=== PATIENT | female | born 1965 | race Caucasian/White ===

== ENCOUNTER 2022-06-23 08:02 | Outpatient (CLI) | payer BC, SELFPAY ==
[2022-06-23 16:53] LABS: Vitamin D 25 Hydroxy* 38 ng/mL (30-80)
[2022-06-23 16:59] LABS: Uric Acid* 4.1 mg/dL (2.2-8.4)
[2022-06-24 16:39] LABS: Rheumatoid Factor <10 IU/mL (0-14)
== END 2022-06-23 08:03 | disposition home or self-care (01) ==
PROVIDERS: Visit Provider Physician Assistant Medical
DX: M25.50 Pain in unspecified joint (principal); E11.9 Type 2 diabetes mellitus without complications; I10 Essential (primary) hypertension
CPT/HCPCS: 82306; 84443; 84550; 86200; 86431; 86618

== ENCOUNTER 2023-02-24 09:14 | Outpatient (CLI) | payer BC, SELFPAY | END 2023-02-24 09:15 | disposition home or self-care (01) | LOC: NFLDREF 02-25 07:22 | PROVIDERS: PCP Physician Assistant Medical; Referring Provider Physician Assistant Medical; Visit Provider Physician Assistant Medical | DX: Z00.00 Encounter for general adult medical examination without abnormal findings (principal); E03.8 Other specified hypothyroidism; E11.9 Type 2 diabetes mellitus without complications; I10 Essential (primary) hypertension; M25.50 Pain in unspecified joint | CPT/HCPCS: 80053; 80061; 84439; 84443 ==

== ENCOUNTER 2023-06-23 15:07 | Outpatient (CLI) | payer BC, SELFPAY ==
--- NOTE | 2023-06-23 15:20 | CRLHL7_ITS ---
For Patients: As a result of the Century Cures Act, medical imaging exams and procedure reports are released immediately into your electronic medical record. You may view this report before your referring provider. If you have questions, please contact your health care provider. BILATERAL SCREENING MAMMOGRAM WITH COMPUTER-AIDED DETECTION AND TOMOSYNTHESIS TECHNIQUE: CC and MLO views were obtained. These mammographic images have been obtained using full-field digital technique. These mammographic images were interpreted with the benefit of computer-aided detection. Breast Tomosynthesis was used in this interpretation. COMPARISON FILM: 12/11/21, 06/17/18, 06/10/17. FINDINGS: The breasts are heterogeneously dense, which may obscure small masses IMPRESSION: There is no radiographic evidence for malignancy. ASSESSMENT: BI-RADS Category 2: Benign RECOMMENDATION: Routine screening mammogram in 1 year. A lay language report of this examination will be provided to the patient. Jj Garcia M.D. Diagnostic Radiologist [email or web address] Transcribed: 1:13 p.[email or web address] lazo/Dictated by: Jj Garcia MD @ 06/24/2023 12:09:00 PM (Electronically Signed)
== END 2023-06-23 15:08 | disposition home or self-care (01) ==
PROVIDERS: Visit Provider Physician Assistant Medical
DX: Z12.31 Encounter for screening mammogram for malignant neoplasm of breast (principal); R92.2 Inconclusive mammogram
CPT/HCPCS: 77063; 77067

== ENCOUNTER 2024-04-04 08:10 | Outpatient (CLI) | payer BC, SELFPAY | END 2024-04-04 08:11 | disposition home or self-care (01) | LOC: NFLDREF 04-05 10:48 | PROVIDERS: PCP Physician Assistant Medical; Referring Provider Physician Assistant Medical; Visit Provider Physician Assistant Medical | DX: Z00.00 Encounter for general adult medical examination without abnormal findings (principal); E03.8 Other specified hypothyroidism; E11.9 Type 2 diabetes mellitus without complications; I10 Essential (primary) hypertension; R05.9 Cough, unspecified; R05.2 Subacute cough | CPT/HCPCS: 80053; 80061; 82043; 82570; 84443 ==

== ENCOUNTER 2024-06-26 08:08 | Outpatient (CLI) | payer BC, SELFPAY ==
--- NOTE | 2024-06-26 08:15 | CRLHL7_ITS ---
For Patients: As a result of the Century Cures Act, medical imaging exams and procedure reports are released immediately into your electronic medical record. You may view this report before your referring provider. If you have questions, please contact your health care provider. BILATERAL SCREENING MAMMOGRAM WITH COMPUTER-AIDED DETECTION AND TOMOSYNTHESIS TECHNIQUE: CC and MLO views were obtained. These mammographic images have been obtained using full-field digital technique. These mammographic images were interpreted with the benefit of computer-aided detection. Breast Tomosynthesis was used in this interpretation. COMPARISON FILM: 06/23/23, 12/11/21, 06/17/18. FINDINGS: The breasts are extremely dense, which lowers the sensitivity of mammography. IMPRESSION: There is no radiographic evidence for malignancy. ASSESSMENT: BI-RADS Category 2: Benign RECOMMENDATION: Routine screening mammogram in 1 year. A lay language report of this examination will be provided to the patient. Jj Garcia M.D. Diagnostic Radiologist [email or web address] SP/Dictated by: Jj Garcia MD @ 06/26/2024 9:45:00 AM (Electronically Signed)
== END 2024-06-26 08:09 | disposition home or self-care (01) ==
LOC: MAMMO 08:09
PROVIDERS: PCP Physician Assistant Medical; Visit Provider Physician Assistant Medical
DX: Z12.31 Encounter for screening mammogram for malignant neoplasm of breast (principal); R92.343 Mammographic extreme density, bilateral breasts
CPT/HCPCS: 77063; 77067

== ENCOUNTER 2025-03-28 07:11 | Day surgery (SDC) | payer BC, SELFPAY ==
[2025-03-28] VITALS (13 sets, daily range): BP systolic 100–133; BP diastolic 65–88; PULSE 57–76; RESP 12–16; TEMP 36.1–36.6; O2SAT 93–97; BMI 29.3
--- NOTE | 2025-03-28 07:38 | W.PM.H&PU ---
History & Physical Update History & Physical Update H&P Reviewed and patient assessed: No changes noted
[2025-03-28] MEDS: LACTATED RINGERS 1000 ML 1,000 ML 100 ML IV (07:50)
[2025-03-28] MEDS: SODIUM CHLORIDE 0.9 % (FLUSH) 10 ML SYRINGE IVF (07:50)
[2025-03-28] MEDS: ROPIVACAINE 0.5% 30 ML 150 MG INJECTION (09:25)
--- NOTE | 2025-03-28 09:32 | P.ORPRC_ITS ---
Procedure Note Date of procedure: 03/28/25 Procedure: PREOPERATIVE DIAGNOSIS: 1. Left knee medial meniscus tear POSTOPERATIVE DIAGNOSIS: 1. Left knee medial meniscus tear PROCEDURE: 1. Left knee arthroscopic partial medial meniscectomy SURGEON: Liang Trinidad M.D. ENVIRONMENTAL PLANNING ENGINEER: Jose Noel PA-C. Of note, an dietetic assistant was critical for this case to aid in patient positioning, knee manipulation, instrument exchange, and closure. ANESTHESIA: Spinal EBL: 2ml TOURNIQUET: 30 min at 300 torr COMPLICATIONS: None evident INDICATIONS: The patient is a pleasant 59-year-old female who has experienced left knee pain particularly with any twisting or turning. Physical exam was concerning for medial meniscus tear, this was confirmed on MRI. Additionally, attempted nonoperative management has been tried, and failed. Thus, surgery was recommended. FINDINGS: Complex tearing posterior horn to midbody medial meniscus. Small effusion upon entering the joint. Grade 2 -3 chondromalacia medial femoral condyle broadly. Intact lateral meniscus. ACL and PCL intact and robust. Grade 2 chondromalacia of patellofemoral compartment. Healthy articular cartilage lateral compartment. DESCRIPTION OF PROCEDURE: After a thorough discussion of risks, benefits, and alternatives, the patient was brought to the operating room and placed upon the operating table. Induction of anesthesia was undertaken as previously noted. 2g iv Ancef was administered within 1 hr of incision preoperatively. Appropriate time-out was performed identifying proper patient, site, and procedure. The left lower extremity was prepped and draped in the appropriate sterile fashion using ChloraPrep. The limb was exsanguinated and tourniquet inflated. Anterolateral and anteromedial portals were established with an 11 blade, and a diagnostic arthroscopy was performed. This identified the findings as noted above. Following the diagnostic arthroscopy, a partial medial menisectomy was performed with the combination of basket forceps and a motorized shaver. Following this, the meniscus was re-probed and found to be stable. Approximately 20-25% of the overall meniscus required resection. At this stage, the shaver was reinserted into the suprapatellar pouch and all remaining meniscal debris was evacuated. Instruments were removed, excess fluid was drained, and closure performed with 4-0 Monocryl with Steri-Strips. Dressings were applied, the tourniquet deflated, and the patient was awoken from anesthesia and transferred to the PACU in stable condition. PLAN: 1. Weightbear as tolerated operative extremity. Crutch / walker ambulation assistance PRN. Straight leg raise to be initiated starting tomorrow by the patient. 2. Ice, acetominophen and/or ibuprofen, and Oxycodone for pain as needed. 3. Knee range of motion and quad sets/straight leg raise regularly 4. Follow up with PA visit in 7-10 days. for a wound check. Initiate physical therapy at that time
--- NOTE | 2025-03-28 09:38 | P.ANES_ITS ---
Anesthesia Charges Start Date/Time Anesthesia Start Date: 03/28/25 Anesthesia Start Time: 08:30 Stop Date/Time Anesthesia Stop Date: 03/28/25 Anesthesia Stop Time: 09:38 Coding CPT Codes CPT Codes: ANESTH KNEE JOINT SURGERY - 69547 ([id number]) P2 - PATIENT W/MILD SYST DISEASE, QZ - PLANTING MACHINE OPERATOR SVC W/O SUPERVISOR ELEMENTARY EDUCATION BY
--- NOTE | 2025-03-28 09:38 | W.ANESCHARGE ---
Anesthesia Charges Start Date/Time Anesthesia Start Date: 03/28/25 Anesthesia Start Time: 08:30 Stop Date/Time Anesthesia Stop Date: 03/28/25 Anesthesia Stop Time: 09:38 Coding CPT Codes CPT Codes: ANESTH KNEE JOINT SURGERY - 45573 ([id number]) P2 - PATIENT W/MILD SYST DISEASE, QZ - FULL SERVICE SUPERVISOR SVC W/O SQL MANAGER BY
--- NOTE | 2025-03-28 10:02 | SUR.PHASEI ---
Patient stated she was comfortable but still cold. Full body bare hugger applied.
== END 2025-03-28 12:10 | disposition home or self-care (01) ==
PROVIDERS: PCP Physician Assistant Medical; Visit Provider Orthopaedic Surgery Sports Medicine
PROC: (CPT 29870; principal; 2025-03-28 09:00)
DX: S83.232A Complex tear of medial meniscus, current injury, left knee, initial encounter (principal); M94.262 Chondromalacia, left knee
CPT/HCPCS: 29881; 01400; J0690; J1100; J1885; J2250; J2405; J2704; J2795; J3010; J7120

== ENCOUNTER 2025-07-10 08:41 | Outpatient (CLI) | payer BC, SELFPAY ==
--- NOTE | 2025-07-10 08:45 | CRLHL7_ITS ---
For Patients: As a result of the Century Cures Act, medical imaging exams and procedure reports are released immediately into your electronic medical record. You may view this report before your referring provider. If you have questions, please contact your health care provider. INDICATION: BILATERAL SCREENING MAMMOGRAM, ASYMPTOMATIC 60 Y/O FEMALE COMPARISON: 06/26/2024, 06/23/2023, 04/13/2023 TECHNIQUE: Digital mammogram in CC and MLO projections including computer-aided detection (CAD) and tomosynthesis. BREAST COMPOSITION: The breasts are heterogeneously dense, which may obscure small masses. FINDINGS: No suspicious findings. ASSESSMENT: BI-RADS 2 Benign RECOMMENDATION: Annual screening mammogram. A lay language report of this examination will be provided to the patient. Dictated by: Jj Garcia MD @ 07/10/2025 11:21:25 (Electronically Signed)
== END 2025-07-10 08:42 | disposition home or self-care (01) ==
PROVIDERS: PCP Physician Assistant Medical; Visit Provider Physician Assistant Medical
DX: Z12.31 Encounter for screening mammogram for malignant neoplasm of breast (principal); R92.333 Mammographic heterogeneous density, bilateral breasts
CPT/HCPCS: 77063; 77067